=== PATIENT | male | born 1965 | race Caucasian/White ===

== ENCOUNTER 2018-12-03 14:49 | Emergency (ER) | payer OTHER ==
[~2018-12-03] VITALS: Ht 170.2 cm; Wt 72.6 kg
[~2018-12-03 14:49] MED LIST: Naprosyn500 MG PO; Valium5 MG PO
[2018-12-03] MEDS ORDERED: NAPR550 PO (16:13)
[2018-12-03] MEDS ORDERED: HYDR1TAB94 PO (16:13)
== END 2018-12-03 16:29 | disposition home or self-care (01) ==
LOC: ER 14:49
DX: M25.461 Effusion, right knee (principal); Z88.8 Allergy status to other drugs, medicaments and biological substances; F17.290 Nicotine dependence, other tobacco product, uncomplicated
CPT/HCPCS: 29505; 73564; 99283-25

== ENCOUNTER 2023-02-10 10:28 | Emergency (ER) | payer OTHER ==
[~2023-02-10] VITALS: Ht 170.2 cm; Wt 72.6 kg
[~2023-02-10 10:28] MED LIST changes: +HYDR1TAB94 PO; +NAPR550 PO
[2023-02-10 11:09] LABS: BASOPHILS ABSOLUTE AUTO 0.05 K/mm3 (0.00-0.23); BASOPHILS PERCENT AUTO 0 % (0-2); EOSINOPHILS ABSOLUTE AUTO 0.48 K/mm3 (0.00-0.68); EOSINOPHILS PERCENT AUTO 4 % (0-6); Hematocrit 44.9 % (37.0-53.0); IMMATURE GRAN ABSOLUTE AUTO 0.05 K/mm3 (0.00-0.10); IMMATURE GRAN PERCENT AUTO 0 % (0-1); LYMPHOCYTES PERCENT AUTO 18 % (21-46); MONOCYTES ABSOLUTE AUTO 1.15 K/mm3 (0.16-1.47); MONOCYTES PERCENT AUTO 9 % (4-13); Mean Corpuscular HGB 30.3 pg (26.0-34.0); Mean Corpuscular HGB Conc 33.4 g/dL (31.5-36.5); Mean Corpuscular Volume 91 fL (80-100); Mean Platelet Volume 8.4 fL (9.1-12.4); NEUTROPHILS ABSOLUTE AUTO 8.42 K/mm3 (1.96-9.15); NEUTROPHILS PERCENT AUTO 68 % (41-73); Platelet Count 435 K/mm3 (150-400); RDW Coefficient Variation 13.9 % (11.7-14.2); RDW Standard Deviation 46.6 fL (35.1-46.3); Red Blood Cell Count 4.95 M/mm3 (4.30-5.90); White Blood Cell Count 12.35 K/mm3 (4.00-11.30)
[2023-02-10 11:29] LABS: Albumin, Blood 3.7 g/dL (3.4-5.0); Albumin/Globulin Ratio 0.8 (0.8-1.8); Bilirubin, Total 1.1 mg/dL (0.1-1.0); Bun/Creatinine Ratio 10.4 (12.0-20.0); Calcium, Blood 9.3 mg/dL (8.5-10.1); Creatinine, Blood 0.96 mg/dL (0.60-1.20); Globulin, Blood 4.6 g/dL (2.2-4.0); Potassium, Blood 4.1 mmol/L (3.5-5.5); Total Protein, Blood 8.3 g/dL (6.4-8.2)
[2023-02-10] MEDS ORDERED: Norco 5-325 Ta1 EACH PO (16:26)
[2023-02-10] MEDS ORDERED: Robaxin750 MG PO (16:26)
== END 2023-02-10 17:15 | disposition home or self-care (01) ==
LOC: ER 10:28
PROVIDERS: Physician Assistant
DX: M62.830 Muscle spasm of back (principal); Z88.8 Allergy status to other drugs, medicaments and biological substances
CPT/HCPCS: 36415; 71046; 80053; 83880; 84484; 85025; 93005; 93010; A9270; J1170; J1885

== ENCOUNTER 2023-04-14 14:18 | Emergency (ER) | payer OTHER ==
[~2023-04-14] VITALS: Ht 170.2 cm; Wt 72.6 kg
[~2023-04-14 14:18] MED LIST changes: +Norco 5-325 Ta1 EACH PO; +Robaxin750 MG PO
[2023-04-14 14:46] VITALS: BP 159/96
[2023-04-14] MEDS ORDERED: CEPH500 PO (15:02)
== END 2023-04-14 15:19 | disposition home or self-care (01) ==
LOC: ER 14:18
DX: L03.114 Cellulitis of left upper limb (principal); Z88.6 Allergy status to analgesic agent; Z87.891 Personal history of nicotine dependence
CPT/HCPCS: 99281

== ENCOUNTER 2023-09-06 08:48 | Day surgery (SDC) | payer OTHER ==
[2023-09-06] VITALS (18 sets, daily range): BP systolic 73–145; BP diastolic 43–128
[~2023-09-06] VITALS: Ht 165.1 cm; Wt 76.3 kg
[~2023-09-06 08:48] MED LIST changes: +CEPH500 PO
--- NOTE | 2023-09-06 09:45 | NUR ---
History, Chart, Medications and Allergies reviewed before start of procedure. Lungs clear T/O to Auscultation. Patient confirms NPO status and agrees with scheduled surgery. Pre-Op teaching done. Pt verbalizes understanding. Patient reports completing Chlorhexadine shower X2 prior to admission to hospital.
--- NOTE | 2023-09-06 10:00 | NUR ---
PT AMB TO BATHROOM WITH STEADY GAIT TO VOID PRIOR TO GOING BACK TO SURGERY
--- NOTE | 2023-09-06 14:13 | NUR ---
PATIENT ARRIVED FROM PACU TODAY AT 1400. POD 0 RIGHT TOTAL KNEE PATIENT IS A&OX4. VS ARE WNL AND IS ON RA. PATIENT HAD A SPINAL DURING THE PROCEDURE AND REPORTS NUMBNESS FROM THE KNEES DOWN, BUT IS ABLE TO WIGGLE HIS TOES. HIS RIGHT KNEE HAS AN KELLY WRAP WITH GAUZE THAT IS C/D/I. POLAR PACK IS IN PLACE. HE IS TOLERATING SMALL AMOUNTS OF PO INTAKE AT THIS TIME. HE IS LAYING IN BED WITH CALL LIGHT IN REACH.
--- NOTE | 2023-09-06 15:13 | NUR ---
SHIFT SUMMARY: POD 0 RIGHT TOTAL KNEE PATIENT IS A&OX4. VS ARE WNL AND IS ON RA. PATIENT REPORTS TINGLING IN HIS FEET BUT IS ABLE TO MOVE ALL FINGERS AND TOES WHEN ASKED. HE REPORTED A 7/10 PAIN AND WAS GIVEN PO TYLENOL AND OXY AT THIS TIME. HIS RIGHT KNEE HAS AN KELLY WRAP WITH GAUZE THAT IS C/D/I. HE IS TOLERATING PO INTAKE. HE IS LAYING IN BED WITH CALL LIGHT IN REACH. CALLS APPROPRIATELY.
[2023-09-07 05:17] LABS: BASOPHILS ABSOLUTE AUTO 0.05 K/mm3 (0.00-0.23); BASOPHILS PERCENT AUTO 0 % (0-2); EOSINOPHILS ABSOLUTE AUTO 0.48 K/mm3 (0.00-0.68); EOSINOPHILS PERCENT AUTO 4 % (0-6); Hematocrit 35.6 % (37.0-53.0); Hemoglobin 11.9 g/dL (13.5-17.5); IMMATURE GRAN ABSOLUTE AUTO 0.03 K/mm3 (0.00-0.10); IMMATURE GRAN PERCENT AUTO 0 % (0-1); LYMPHOCYTES ABSOLUTE AUTO 1.64 K/mm3 (0.84-5.20); LYMPHOCYTES PERCENT AUTO 14 % (21-46); MONOCYTES ABSOLUTE AUTO 1.47 K/mm3 (0.16-1.47); MONOCYTES PERCENT AUTO 13 % (4-13); Mean Corpuscular HGB 30.3 pg (26.0-34.0); Mean Corpuscular HGB Conc 33.4 g/dL (31.5-36.5); Mean Corpuscular Volume 91 fL (80-100); Mean Platelet Volume 8.3 fL (9.1-12.4); NEUTROPHILS ABSOLUTE AUTO 8.02 K/mm3 (1.96-9.15); NEUTROPHILS PERCENT AUTO 69 % (41-73); Platelet Count 386 K/mm3 (150-400); RDW Standard Deviation 46.6 fL (35.1-46.3); Red Blood Cell Count 3.93 M/mm3 (4.30-5.90); White Blood Cell Count 11.69 K/mm3 (4.00-11.30)
[2023-09-07 05:34] VITALS: BP 117/85
[2023-09-07 05:44] LABS: Bun/Creatinine Ratio 16.7 (12.0-20.0); Calcium, Blood 8.5 mg/dL (8.5-10.1); Creatinine, Blood 1.14 mg/dL (0.60-1.20); Potassium, Blood 4.3 mmol/L (3.5-5.5)
--- NOTE | 2023-09-07 06:12 | NUR ---
SHIFT SUMMARY POD 1 R TKA. NO ACUTE CHANGES OVERNIGHT. VSS. GAUZE/KELLY WRAP C/D/I. POLAR PACK IN PLACE. PT SLEPT WELL THROUGHOUT MOST OF THE NIGHT. TOLERATING ORALS. PT AMBULATED TO THE RESTROOM c FWW & SBA, URINATING INDEPENDENTLY. PT REPORTS PAIN TOLERABLE, MEDICATED PER EMAR. PT SITTING IN CHAIR, DRESSED. CALL LIGHT WITHIN REACH, WILL REPORT TO DAY RN.
[2023-09-07 07:22] VITALS: BP 106/79
--- NOTE | 2023-09-07 13:24 | NUR ---
DISCHARGE SUMMARY PT A&OX4, VSS/RA, INGA PO, VOIDING, AMB W/FWW, PAIN MANAGED, IV DC'D. POD1 R TKA, AQUACEL DRESSING APPLIED THIS MORNING BY SURGEON, STERLING. DC INS PROVIDED. PT REP UNDERSTANDING THOSE INSTRUCTIONS INCLUDING ASA 81, BACTRIM, DRESSING CHANGES, PAIN MGMT, STOOL SOFTENERS, FU WITH SURGEON. LEFT FLOOR VIA WC TO GO HOME WITH SISTER ANNY, WITH ALL PERSONAL POSSESSIONS INCLUDING FWW, DC INS, AQUACEL DRESSINGS; REP SCRIPTS FILLED AND AT HOME.
== END 2023-09-07 12:27 | disposition home or self-care (01) ==
LOC: ORSCMMR 08:48 → ORD 10:45 → SURS 13:51 → ORD 14:00 → ORSCMMR 14:00
PROVIDERS: Orthopaedic Surgery
PROC: 0SRC0J9 Replacement of Right Knee Joint with Synthetic Substitute, Cemented, Open Approach (ICD-10-PCS; principal; 2023-09-06 10:45)
DX: M17.11 Unilateral primary osteoarthritis, right knee (principal); Z79.899 Other long term (current) drug therapy; Z79.82 Long term (current) use of aspirin; Z87.891 Personal history of nicotine dependence
CPT/HCPCS: 36415; 73560-RT; 80048; 83735; 85025; 97110; 97116; 97162; 97530; A9270; C1713; C1776; J0171; J0690; J0735; J1170; J1885; J2250; J2371; J2704; J2795; J3010; J3370; J7120